=== PATIENT | female | born 1990 | race Caucasian/White ===

== ENCOUNTER 2016-10-10 19:24 | Emergency (ER) | payer BC ==
[~2016-10-10] VITALS: Ht 167.6 cm; Wt 84.8 kg
[2016-10-10] MEDS ORDERED: SODIUM CHLORIDE 0.9% 1,000ML IVBOLUS ONE (19:30)
[2016-10-10] MEDS ORDERED: SODIUM CHLORIDE FLUSH 10ML SYR IVF ONE (19:30)
[2016-10-10 19:56] LABS: ASPARTATE AMINO TRANSFERASE 16 U/L (15-37); BLOOD UREA NITROGEN 11 mg/dL (7-18)
[2016-10-10 20:41] VITALS: BP 123/64
[2016-10-10 20:57] VITALS: BP 118/76
== END 2016-10-10 21:18 | disposition home or self-care (01) ==
LOC: ED 21:00
DX: O23.11 Infections of bladder in pregnancy, first trimester (principal); O20.0 Threatened abortion; Z3A.09 9 weeks gestation of pregnancy
CPT/HCPCS: 36415; 36430; 76801; 80053; 81001; 84702; 85025; 86850; 86900; 87086; 96360; 99285; J2790; J7030

== ENCOUNTER 2016-10-20 23:46 | Emergency (ER) | payer BC ==
[~2016-10-20] VITALS: Ht 170.2 cm; Wt 85.3 kg
[2016-10-21] MEDS ORDERED: CLINDAMYCIN PMX 600MG/50ML 50 ML IV ONE (00:30)
[2016-10-21 00:53] LABS: BLOOD UREA NITROGEN 10 mg/dL (7-18)
[2016-10-21 01:48] VITALS: BP 128/73
== END 2016-10-21 02:33 | disposition home or self-care (01) ==
LOC: ED 23:59
DX: O20.0 Threatened abortion (principal); Z3A.12 12 weeks gestation of pregnancy
CPT/HCPCS: 36415; 76801; 80048; 81003; 82040; 84702; 85025

== ENCOUNTER 2017-04-04 20:15 | Outpatient (CLI) | payer BC ==
[~2017-04-04] VITALS: Ht 167.6 cm; Wt 97.2 kg
== END 2017-04-04 21:41 | disposition home or self-care (01) ==
LOC: LDOP 20:15
PROVIDERS: ATTEND Obstetrics & Gynecology
DX: O26.893 Other specified pregnancy related conditions, third trimester (principal); O12.03 Gestational edema, third trimester; R10.9 Unspecified abdominal pain; Z3A.35 35 weeks gestation of pregnancy
CPT/HCPCS: 59025; 81003; 87086; 99211; G0463

== ENCOUNTER 2017-04-09 11:33 | Outpatient (CLI) | payer BC, MEDICAID ==
[2017-04-09 11:45] VITALS: BP 126/63
[2017-04-17] MEDS ORDERED: PREN-59 PO (02:05)
== END 2017-04-09 12:57 | disposition home or self-care (01) ==
LOC: LDOP 11:33
PROVIDERS: ATTEND Obstetrics & Gynecology
DX: O42.913 Preterm premature rupture of membranes, unspecified as to length of time between rupture and onset of labor, third trimester (principal); Z3A.34 34 weeks gestation of pregnancy
CPT/HCPCS: 59025; 89060; 99211; G0463; Q0114

== ENCOUNTER 2017-04-12 18:26 | Outpatient (CLI) | payer MEDICAID ==
[2017-04-12 19:00] VITALS: BP 126/69
[2017-04-17] MEDS ORDERED: PREN-59 PO (02:05)
== END 2017-04-12 19:19 | disposition home or self-care (01) ==
LOC: LDOP 18:26
PROVIDERS: ATTEND Obstetrics & Gynecology
DX: O36.8130 Decreased fetal movements, third trimester, not applicable or unspecified (principal); O26.893 Other specified pregnancy related conditions, third trimester; O12.03 Gestational edema, third trimester; R10.9 Unspecified abdominal pain; Z3A.36 36 weeks gestation of pregnancy
CPT/HCPCS: 59025; 99211; G0463

== ENCOUNTER 2017-04-17 18:46 | Outpatient (CLI) | payer MEDICAID ==
[~2017-04-17] VITALS: Ht 167.6 cm; Wt 110.0 kg
[~2017-04-17 18:46] MED LIST: PREN-59 PO
[2017-04-17] MEDS ORDERED: PROMETHAZINE 25 MG/ML, 1ML ONE (19:27)
[2017-04-17] MEDS ORDERED: MEPERIDINE/PF 100 MG/ML ONE (19:27)
[2017-04-17] MEDS ORDERED: PROMETHAZINE 25 MG/ML, 1ML IM ONE (19:30)
[2017-04-17] MEDS ORDERED: MEPERIDINE/PF 100 MG/ML IM PRN (19:30)
[2017-04-17] MEDS ORDERED: PLEASE ENTER HEIGHT AND WEIGHT MC SCH (20:00)
== END 2017-04-17 19:49 | disposition home or self-care (01) ==
LOC: LDOP 18:46
PROVIDERS: ATTEND Obstetrics & Gynecology
DX: O42.913 Preterm premature rupture of membranes, unspecified as to length of time between rupture and onset of labor, third trimester (principal); O62.9 Abnormality of forces of labor, unspecified; O46.93 Antepartum hemorrhage, unspecified, third trimester; O26.893 Other specified pregnancy related conditions, third trimester; R10.9 Unspecified abdominal pain; Z3A.35 35 weeks gestation of pregnancy
CPT/HCPCS: 59025; 99211; J2175; J2550; G0463

== ENCOUNTER 2017-04-18 04:02 | Inpatient (IN) | payer MEDICAID ==
[~2017-04-18] VITALS: Ht 167.6 cm; Wt 98.0 kg
[2017-04-18] MEDS ORDERED: OXYTOCIN 30U/ 0.9% NaCL 500ML 500 ML IV ONE (04:15)
[2017-04-18] MEDS ORDERED: D5%-LACTATED RINGERS 1,000 ML IV SCH (04:15)
[2017-04-18] MEDS: LACTATED RINGERS 1,000 ML IV SCH ×2 (04:24→04:44)
[2017-04-18] MEDS ORDERED: FENTANYL PF 100 MCG/2ML IV PRN (04:30)
[2017-04-18] MEDS ORDERED: FENTANYL PF 100 MCG/2ML IVPush PRN (04:30)
[2017-04-18 04:39] LABS: HEMOGLOBIN 10.6 g/dL (11.7-16.4)
[2017-04-18] MEDS ORDERED: FLU VACC QS2017-18 (36MOS+) UP/PF 0.5 ML IM-VACC ONE (05:00)
[2017-04-18] MEDS ORDERED: LACTATED RINGERS 1,000 ML IV SCH (05:15)
[2017-04-18] MEDS ORDERED: FENTANYL/BUPIV./NS/PF 250 ML EPIDCONT SCH (05:15)
[2017-04-18] MEDS ORDERED: LACTATED RINGERS 1,000 ML IVBOLUS PRN (05:30)
[2017-04-18] MEDS ORDERED: NALOXONE 0.4 MG/ML, 1ML IVPush PRN (05:30)
[2017-04-18] MEDS ORDERED: EPHEDRINE 50 MG/ML, 1ML IVPush PRN (05:30)
[2017-04-18 05:32] LABS: ASPARTATE AMINO TRANSFERASE 18 U/L (15-37); BLOOD UREA NITROGEN 6 mg/dL (7-18)
[2017-04-18] MEDS: OXYTOCIN 30U/ 0.9% NaCL 500ML 500 ML IV PRN ×2 (11:20→14:01)
[2017-04-18] MEDS: OXYTOCIN 30U/ 0.9% NaCL 500ML 500 ML IV SCH (14:09)
[2017-04-18] MEDS ORDERED: ONDANSETRON 2MG/ML, 2ML IV PRN (14:30)
[2017-04-18] MEDS ORDERED: METOCLOPRAMIDE 5 MG/ML, 2ML IV PRN (14:30)
[2017-04-18] MEDS ORDERED: BISACODYL 10 MG SUPP PR PRN (14:30)
[2017-04-18] MEDS ORDERED: DOCUSATE 100 MG CAPSULE PO PRN (14:30)
[2017-04-18] MEDS ORDERED: ACETAMINOPHEN 325 MG TABLET PO PRN (14:30)
[2017-04-18] MEDS ORDERED: CARBOPROST TROMETHAMINE 250 MCG/ML, 1ML IM PRN (14:30)
[2017-04-18] MEDS ORDERED: OXYcodone/APAP 5/325MG TABLET PO PRN (14:30)
[2017-04-18] MEDS ORDERED: GLYCERIN ADULT SUPP PR PRN (14:30)
[2017-04-18] MEDS: CEFOXITIN 1,000 MG in DEXTROSE 5% 50 ML IV SCH ×2 (15:08→23:08)
[2017-04-18 16:00] VITALS: BP 129/77
[2017-04-18] MEDS: OXYcodone/APAP 5/325MG TABLET PO PRN ×2 (16:10→23:08)
[2017-04-18] MEDS: IBUPROFEN 800 MG TABLET PO PRN ×2 (16:11→23:08)
[2017-04-18 21:15] VITALS: BP 139/80
[2017-04-18 22:24] LABS: HEMATOCRIT 29.1 % (34.6-47.8); WHITE BLOOD COUNT 12.6 x10^3/uL (3.4-10)
[2017-04-19] MEDS: OXYTOCIN 30U/ 0.9% NaCL 500ML 500 ML IV SCH ×2 (00:09→10:09)
[2017-04-19 00:50] VITALS: BP 132/77
[2017-04-19] MEDS: IBUPROFEN 800 MG TABLET PO PRN ×2 (00:51→10:19)
[2017-04-19] MEDS ORDERED: DIPH,PERTUSS(ACELL),TET VAC/PF NC IM-VACC ONE (04:30)
[2017-04-19 04:58] VITALS: BP 125/74
[2017-04-19] MEDS ORDERED: RHOGAM FROM BLOOD BANK 1 NOTE EA IM/IV ONE (05:30)
[2017-04-19 08:00] VITALS: BP 135/83
[2017-04-19] MEDS ORDERED: PRENATAL VIT/IRON/FA 1 EACH TABLET PO SCH (09:00)
[2017-04-19] MEDS: CEFOXITIN 1,000 MG in DEXTROSE 5% 50 ML IV SCH (09:23)
[2017-04-19] MEDS ORDERED: FLU VACC QS2017-18 (36MOS+) UP/PF 0.5 ML IM-VACC ONE (12:00)
[2017-04-19] MEDS ORDERED: OXYC-302 PO (13:13)
[2017-04-19] MEDS ORDERED: IBUP-1222 PO (13:14)
== END 2017-04-19 15:36 | disposition home or self-care (01) | DRG 774 ==
LOC: LDOP 04:02 → LDIP 04:21 → 2NW 15:52
PROVIDERS: ADMIT Obstetrics & Gynecology; ATTEND Obstetrics & Gynecology
PROC: 0KQM0ZZ Repair Perineum Muscle, Open Approach (ICD-10-PCS; principal; 2017-04-18)
PROC: 10E0XZZ Delivery of Products of Conception, External Approach (ICD-10-PCS; 2017-04-18)
PROC: 3E0R3BZ Introduction of Anesthetic Agent into Spinal Canal, Percutaneous Approach (ICD-10-PCS; 2017-04-18)
PROC: 00HU33Z Insertion of Infusion Device into Spinal Canal, Percutaneous Approach (ICD-10-PCS; 2017-04-18)
DX: O13.4 Gestational [pregnancy-induced] hypertension without significant proteinuria, complicating childbirth (principal); O72.1 Other immediate postpartum hemorrhage; O69.81X0 Labor and delivery complicated by cord around neck, without compression, not applicable or unspecified; Z37.0 Single live birth; O70.1 Second degree perineal laceration during delivery; Z3A.37 37 weeks gestation of pregnancy; Z82.49 Family history of ischemic heart disease and other diseases of the circulatory system; Z87.410 Personal history of cervical dysplasia
CPT/HCPCS: 36415; 80053; 81001; 82570; 84156; 84550; 85025; 85461; 86850; 86900; 89060; 90686; 90715; J2790; J0694; J2590; J3010; J7120; J7121; Q0114

== ENCOUNTER 2018-04-20 21:50 | Emergency (ER) | payer MEDICAID ==
[~2018-04-20] VITALS: Ht 167.6 cm; Wt 87.1 kg
[~2018-04-20 21:50] MED LIST changes: +IBUP-1222 PO; +OXYC-302 PO
[2018-04-20 21:53] VITALS: BP 133/76
[2018-04-20] MEDS ORDERED: hydrOXyzine 50MG TABLET ONE (22:16)
[2018-04-20] MEDS ORDERED: FAMOTIDINE 20 MG TABLET ONE (22:16)
[2018-04-20] MEDS ORDERED: FAMOTIDINE 20 MG TABLET PO ONE (22:30)
== END 2018-04-20 23:03 | disposition home or self-care (01) ==
LOC: ED 22:24
DX: L24.5 Irritant contact dermatitis due to other chemical products (principal)
CPT/HCPCS: 99284; J7512; Q0177

== ENCOUNTER 2018-07-06 18:29 | Emergency (ER) | payer MEDICAID ==
[~2018-07-06] VITALS: Ht 167.6 cm; Wt 88.0 kg
[2018-07-06 18:45] VITALS: BP 137/74
[2018-07-06] MEDS ORDERED: LIDOCAINE-MPF 1%, 5ML INFIL ONE (19:30)
--- NOTE | 2018-07-06 19:31 | NUR ---
ABSCESS LANCED BY ROYER TECH AT BEDSIDE FOR IRRIGATION
== END 2018-07-06 20:00 | disposition home or self-care (01) ==
LOC: ED 19:54
DX: L02.416 Cutaneous abscess of left lower limb (principal)
CPT/HCPCS: 10060; 99283

== ENCOUNTER 2018-07-08 18:25 | Emergency (ER) | payer MEDICAID ==
[~2018-07-08] VITALS: Ht 167.6 cm; Wt 86.8 kg
[2018-07-08 18:36] VITALS: BP 126/66
== END 2018-07-08 19:47 | disposition home or self-care (01) ==
LOC: ED 19:41
DX: Z48.01 Encounter for change or removal of surgical wound dressing (principal)
CPT/HCPCS: 99283

== ENCOUNTER 2018-07-10 19:20 | Emergency (ER) | payer MEDICAID ==
[~2018-07-10] VITALS: Ht 167.6 cm; Wt 88.2 kg
[2018-07-10 21:16] VITALS: BP 108/73
== END 2018-07-10 21:19 | disposition home or self-care (01) ==
LOC: ED 21:13
DX: L02.416 Cutaneous abscess of left lower limb (principal)
CPT/HCPCS: 99282

== ENCOUNTER 2018-09-15 18:19 | Emergency (ER) | payer MEDICAID ==
[~2018-09-15] VITALS: Ht 167.6 cm; Wt 88.6 kg
--- NOTE | 2018-09-15 19:27 | NUR ---
PT RESTING CALMLY IN BED. PT GIVEN URINE CUP AND STOOL COLLECTION HAT. PT IN HOSPITAL GOWN. PT ROOM ON SPECIAL CONTACT ISO FOR REPORT OF DIARRHEA. PT PLACED ON VITALS MONITORS. LAB JUST DRAWN. CALL LIGHT WITHIN REACH. WILL CONTINUE TO MONITOR.
[2018-09-15 19:43] LABS: ALANINE AMINOTRANSFERASE 85 U/L (12-78); ALBUMIN 3.9 g/dL (3.4-5.0); ANION GAP 6 mmol/L (5-15); CALCIUM 8.4 mg/dL (8.5-10.1); CHLORIDE 110 mmol/L (98-107)
[2018-09-15 19:44] LABS: BASOPHILS % (AUTO) 0 % (0-1); EOSINOPHILS # (AUTO) 0.03 x10^3/uL (0-0.4); EOSINOPHILS % (AUTO) 1 % (1-7); LYMPHOCYTES # (AUTO) 0.68 x10^3/uL (1-3.4); LYMPHOCYTES % (AUTO) 17 % (22-44); MD NO; MEAN CORPUSCULAR HEMOGLOBIN 31.6 pg (27.0-34.8); MEAN CORPUSCULAR HGB CONC 34.4 g/dL (32.4-35.8); MEAN CORPUSCULAR VOLUME 91.8 fL (80-100); MEAN PLATELET VOLUME 9.3 fL (7.4-10.4); MONOCYTES # (AUTO) 0.12 x10^3/uL (0.2-0.8); MONOCYTES % (AUTO) 3 % (2-9); NEUTROPHILS # (AUTO) 3.08 x10^3/uL (1.8-6.8); NEUTROPHILS % (AUTO) 79 % (42-75); PLATELET COUNT 227 x10^3/uL (130-400); RED BLOOD COUNT 4.31 x10^6/uL (3.82-5.3); RED CELL DISTRIBUTION WIDTH 12.8 % (9.6-15.2)
[2018-09-15 19:48] LABS: ALKALINE PHOSPHATASE 54 U/L (45-117); BILIRUBIN,TOTAL 0.5 mg/dL (0.2-1.0); TOTAL PROTEIN 7.6 g/dL (6.4-8.2)
--- NOTE | 2018-09-15 20:05 | NUR ---
PT GIVEN WATER PER ERP OKAY TO HER HER HAVE A URINE
--- NOTE | 2018-09-15 20:50 | NUR ---
PT ABLE TO AMBULATE STEADILY TO THE BATHROOM TO PROVIDE URINE SAMPLE. URINE SAMPLE SENT.
--- NOTE | 2018-09-15 20:55 | NUR ---
no STOOL SAMPLE AVAILABLE. PT STATED SHE IS FEELING BETTER AND DIARRHEA IS RESOLVING
[2018-09-15 21:06] LABS: MICROSCOPIC NOT IND
[2018-09-15 21:12] LABS: CULTURE INDICATED? NO
[2018-09-15 21:57] VITALS: BP 113/65
== END 2018-09-15 21:59 | disposition home or self-care (01) ==
LOC: ED 21:00
DX: K52.9 Noninfective gastroenteritis and colitis, unspecified (principal)
CPT/HCPCS: 36415; 80053; 81003; 83690; 84703; 85025; 99283

== ENCOUNTER 2020-04-04 18:50 | Emergency (ER) | payer MEDICAID ==
[~2020-04-04] VITALS: Ht 167.6 cm; Wt 93.3 kg
[2020-04-04 19:39] LABS: BASOPHILS % (AUTO) 1 % (0-1); EOSINOPHILS % (AUTO) 2 % (1-7); LYMPHOCYTES % (AUTO) 37 % (22-44); MEAN CORPUSCULAR HEMOGLOBIN 31.7 pg (27.0-34.8); MEAN CORPUSCULAR HGB CONC 34.9 g/dL (32.4-35.8); MEAN PLATELET VOLUME 8.6 fL (7.4-10.4); MONOCYTES % (AUTO) 6 % (2-9); NEUTROPHILS % (AUTO) 55 % (42-75); PLATELET COUNT 350 x10^3/uL (130-400); RED BLOOD COUNT 4.46 x10^6/uL (3.82-5.3); RED CELL DISTRIBUTION WIDTH 13.3 % (9.6-15.2)
[2020-04-04 19:47] LABS: ALBUMIN 4.4 g/dL (3.4-5.0); ANION GAP 4 mmol/L (5-15); CALCIUM 9.3 mg/dL (8.5-10.1); CHLORIDE 106 mmol/L (98-107); CREATININE 0.81 mg/dL (0.55-1.02); MD NO
[2020-04-04 19:51] LABS: TROPONIN I < 0.015 ng/mL (0.000-0.045)
--- NOTE | 2020-04-04 21:35 | NUR ---
PT AMBULATORY TO EXAM ROOM W/ STEADY GAIT.
--- NOTE | 2020-04-04 21:40 | NUR ---
MARISELA CHIANG AT ; COVID TEST SPECIMEN OBTAINED.
--- NOTE | 2020-04-04 21:42 | NUR ---
C/O "A LITTLE BIT OF (CHEST) TIGHTNESS", COUGH, BLANCO, ACHY. BOYFRIEND MIGHT HAVE COVID. PT'S SENSE OF SMELL AND TASTE INTACT. HAD DIARRHEA YESTERDAY. DAUGHTER HAS A "BAD COUGH"; COVID TEST NEG. HAS BEEN TAKING IBUPROFEN (LAST DOSE SATURDAY) AND DAYQUIL (LAST DOSE SATURDAY). Addendum: 04/04/20 at 2145 by LIANA ABLE TO SPEAK IN COMPLETE SENTENCES W/OUT DIFFICULTY. DENIES SOB, DYSPNEA. RESP EVEN UNLABORED. OCCASIONAL LIGHT COUGH NOTED. SKIN WNL
[2020-04-04 21:50] VITALS: BP 135/86
== END 2020-04-04 22:14 | disposition home or self-care (01) ==
LOC: ED 21:59
DX: R07.89 Other chest pain (principal); Z20.828 Contact with and (suspected) exposure to other viral communicable diseases; I49.3 Ventricular premature depolarization
CPT/HCPCS: 36415; 71045; 80048; 82040; 84484; 85025; 87635; 93005; 99285